=== PATIENT | female | born 1960 | race Caucasian/White ===

== ENCOUNTER 2016-08-10 10:12 | Emergency (ER) | payer OTHER ==
[~2016-08-10] VITALS: Ht 165.1 cm; Wt 77.5 kg
[~2016-08-10 10:12] MED LIST: EFFSR/75 PO; EFFSR150 PO; OXYC-106 PO
[2016-08-10 10:32] VITALS: TEMP 36.6; Ht 165.1 cm; Wt 77.5 kg
--- NOTE | 2016-08-10 10:52 | EMERGENCY ROOM VISIT NOTE ---
History Report prepared by Marija: Joshua Price Under the Supervision of: Dr. Onel Aguilar M.D. First contact with patient: 10:45 Chief Complaint: RASH Stated Complaint: RT ARM RASH History of Present Illness The patient is a 56 year old female who presents to the Emergency Room with complaints of a persistent right shoulder and upper arm rash that started 3 days ago. She says the rash is very painful. The patient notes that the rash is starting to go down her right arm and even to her thumb. She states that the pain started a week ago, and the rash started 3 days ago. The patient thinks she has shingles. Source of History: patient Onset: 3 days ago Position: shoulder (right), arm (right) Timing: other (painful) Note: Associated symptoms: Right shoulder and right arm pain. No other associated symptoms noted. Review of Systems See HPI for pertinent positives & negatives. A total of 10 systems reviewed and were otherwise negative. Past Medical & Surgical Medical Problems: (1) Asthma (2) Chronic neck pain (3) Esophageal Reflux (4) Hyperlipidemia Nec/Nos (5) Hypothyroidism Nos (6) Lumbago Surgical Problems: (1) History of cholecystectomy Family History Cancer Diabetes mellitus Heart disease Hypertension Kidney stones Social History Smoking Status: Current Every Day Smoker Alcohol Use: none Marital Status: single Current/Historical Medications Scheduled Valacyclovir Hcl (Valtrex), 1,000 MG PO TID Venlafaxine HCl (Venlafaxine HCl ER), 75 MG PO DAILY Venlafaxine Hcl (Effexor Extended Rel), 150 MG PO DAILY Scheduled PRN Oxycodone/Acetaminophen 5MG/325MG (Percocet 5MG/325MG), 1-2 TAB PO Q4H PRN for Pain Allergies Coded Allergies: Cyclobenzaprine (Verified Allergy, Severe, rash, 08/10/16) Tramadol (Verified Allergy, Intermediate, abd cramps, 08/10/16) Morphine (Verified Allergy, Unknown, Does not remember, 08/10/16) Physical Exam Vital Signs Date Time Temp Pulse Resp B/P Pulse Ox O2 Delivery O2 Flow Rate FiO2 08/10/16 11:41 90 18 164/111 99 08/10/16 10:32 36.6 94 18 147/93 99 Room Air Physical Exam GENERAL: Patient is a healthy-appearing well-nourished HEAD: Normocephalic atraumatic EYES: Ocular movements intact pupils equal and react to light OROPHARYNX mucous membranes are moist no exudates present no erythema or edema present NECK: Supple no nuchal rigidity CHEST: Good equal expansion LUNGS: Clear and equal to auscultation CARDIAC: Normal S1 and S2 ABDOMEN: Soft nontender no guarding BACK: No CVA tenderness EXTREMITIES: Blister-like rash that is pattern of dermatome of Z6. NEURO: Patient is following commands is answering questions appropriately. Alert and oriented x3 Cranial Nerves 2-12 grossly intact Medical Decision & Procedures Medications Administered Medications (Trade) Dose Ordered Sig/Mayra Route Start Time Stop Time Status Last Admin Dose Admin Valacyclovir HCl (Valtrex Tab) 1,000 mg NOW STAT PO 08/10/16 11:05 08/10/16 11:07 DC 08/10/16 11:30 1,000 MG Ibuprofen (Motrin Tab) 600 mg NOW STAT PO 08/10/16 11:05 08/10/16 11:07 DC 08/10/16 11:30 600 MG Oxycodone/ Acetaminophen (Percocet 5-325mg Tab) 2 tab NOW ONCE PO 08/10/16 11:15 08/10/16 11:16 DC 08/10/16 11:31 2 TAB ED Course 1059: Past medical records reviewed. The patient was evaluated in room C6. A complete history and physical examination was performed. 1105: Ordered Motrin Tab 600 mg PO, Valtrex Tab 1000 mg PO. 1115: Ordered Percocet 5-325mg Tab 2 tab PO. 1116: I reevaluated the patient and she is resting comfortably. The patient verbally expressed understanding and agreement of the treatment plan. The patient will be discharged. Medical Decision Differential diagnoses include: shingles. This is a 56-year-old female who presents with a blisterlike rash in the pattern of C6 dermatome. The rash does not cross the midline. For this reason she was started on Valtrex and given ibuprofen as well as oxy for the pain. I do believe the patient as well as to be discharged home for follow-up with her primary care physician. Patient was in agreement with the treatment plan. Impression Primary Impression: Shingles Scribe Attestation The scribe's documentation has been prepared under my direction and personally reviewed by me in its entirety. I confirm that the note above accurately reflects all work, treatment, procedures, and medical decision making performed by me. Departure Information Dispostion Home / Self-Care Prescriptions Oxycodone/Acetaminophen 5MG/325MG (PERCOCET 5MG/325MG) Tab 1-2 TAB PO Q4H Y for Pain, #14 TAB Prov: Onel Aguilar MD 08/10/16 Valacyclovir Hcl (VALTREX) 1 Gm Tab 1000 MG PO TID, #21 TAB Prov: Onel Aguilar MD 08/10/16 Referrals No Doctor, Assigned (PCP) Forms HOME CARE DOCUMENTATION FORM, IMPORTANT VISIT INFORMATION, WORK / SCHOOL INSTRUCTIONS Patient Instructions My [facility], Shingles Herpes Zoster Additional Instructions Take 600 mg Ibuprofen every 6 hours Take percocet for breakthrough pain You have been examined and treated today on an emergency basis only. This is not a substitute for, or an effort to provide, complete comprehensive medical care. It is impossible to recognize and treat all injuries or illnesses in a single emergency department visit. It is therefore important that you follow up closely with your PCP. Call as soon as possible for an appointment. Thank you for your time and consideration. I look forward to speaking with you again soon. Please don't hesitate to call us if you have any questions. Problem Qualifiers Primary Impression: Shingles Herpes zoster complications: unspecified herpes zoster complication Qualified Codes: B02.8 - Zoster with other complications
[2016-08-10] MEDS ORDERED: IBUPROFEN 600 MG TAB PO STA (11:05)
[2016-08-10] MEDS ORDERED: VALA1TAB2 PO (11:08)
[2016-08-10] MEDS ORDERED: OXYC-57 PO (11:08)
[2016-08-10] MEDS ORDERED: OXYCODONE/ACETAMINOPHEN 5-325 TAB PO ONE (11:15)
[2016-08-10 11:41] VITALS: BP 164/111; PULSE 90; O2SAT 99
== END 2016-08-10 11:41 | disposition home or self-care (01) ==
LOC: C.EDB 10:12 → C.EDC 11:41
DX: B02.8 Zoster with other complications (principal); J45.909 Unspecified asthma, uncomplicated; K21.9 Gastro-esophageal reflux disease without esophagitis; E78.5 Hyperlipidemia, unspecified; E03.9 Hypothyroidism, unspecified; M54.2 Cervicalgia; G89.29 Other chronic pain; F17.210 Nicotine dependence, cigarettes, uncomplicated; Z79.899 Other long term (current) drug therapy